=== PATIENT | male | born 1935 | race Caucasian/White ===

== ENCOUNTER → 2016-11-03 | Outpatient (CLI) | payer MEDICARE, BC ==
[~2016-11-03] MED LIST: ASPI-COR81 M1 PO; AVODART0.5 MG PO; B121000 MCG/1 IM; BACTRIM 400 MG-1 TAB PO; BUPROPION75 MG PO; CATAPRES T0.3 MG/24 TD; CELEXA20 MG PO; CELLCEPT500 MG PO; CHOLESTYRAMINE1 POW; CILOXAN 5 ML5 M1 OP; CILOXAN 5 ML5 ML OT; CLONIDINE HCL0.1 MG PO; CYANOCOBAL1000 MCG/1; CYMBALTA30 MG PO; DELTASONE5 MG PO; DURICEF500 MG PO; FERROUS SULFAT325 MG PO; HYDRALAZINE HYD50 MG PO; IMODIUM A-D2 M2 PO; LASIX20 MG PO; LEVOTHYROXIN0.025 MG PO; LEVOXYL50 MCG PO; MAGNESIUM OXID400 MG PO; MAGNESIUM400 M1 PO; MASON NATURAL2000 IU PO; MULTIPLE VITAMI1 CAP PO; NEORAL100 MG PO; PREDNISONE10 MG PO; ROCALTROL0.25 MC2 PO; ROCALTROL0.5 MC1 PO; SULFAMETHOXAZO100 GM MC; SULFAMETHOXAZO100 GM PO; SUNMARK MAGNES250 MG PO; VERAPAMIL240 MG PO; VERELAN SR 240240 MG PO; VITAMIN D34000 UNIT PO; XIFAXAN550 MG PO; [UNRECOGNIZED DRUG - OTHER] PO
== END | disposition home or self-care (01) ==
LOC: RAD 16:19
DX: M47.896 Other spondylosis, lumbar region (principal); M54.5 Low back pain

== ENCOUNTER → 2016-12-02 | Outpatient (CLI) | payer MEDICARE, BC | END | disposition home or self-care (01) | LOC: RAD 10:04 | DX: M16.0 Bilateral primary osteoarthritis of hip (principal) ==

== ENCOUNTER 2017-11-27 23:35 | Emergency (ER) | payer MEDICARE, BC ==
[~2017-11-27] VITALS: Ht 172.7 cm; Wt 88.5 kg
[2017-11-28 01:03] LABS: BASO # 0.1 10*3/uL (0.0-0.1); BASO % 0.8 % (0.0-1.0); EOS # 0.3 10*3/uL (0.0-0.4); EOS % 2.3 % (1.0-4.0); HEMATOCRIT 29.9 % (42.0-52.0); HEMOGLOBIN 8.8 g/dl (14.0-18.0); LYMPH # 0.6 10*3/uL (1.3-4.4); LYMPH % 5.7 % (27.0-41.0); MEAN CELL VOLUME 104.2 fl (80.0-94.0); MEAN CORPUSCULAR HGB 30.7 pg (27.0-31.0); MEAN CORPUSCULAR HGB CONC 29.4 g/dl (33.0-37.0); MEAN PLATELET VOLUME 10.2 fl (9.6-12.3); MONO # 1.1 10*3/uL (0.1-1.0); MONO % 9.6 % (3.0-9.0); NEUT # 9.1 10*3/uL (2.3-7.9); NEUT % 80.4 % (47.0-73.0); PLATELET COUNT AUTOMATED 275 10*3/uL (130-400); RED BLOOD COUNT 2.87 10*6/uL (4.50-5.90); RED CELL DISTRI WIDTH 18.4 % (0-14.5); WHITE BLOOD COUNT 11.3 10*3/uL (4.8-10.8)
[2017-11-28 01:22] LABS: ALBUMIN 2.6 gm/dl (3.1-4.5); CREATININE 4.84 mg/dL (0.70-1.30); POTASSIUM 4.8 mmol/L (3.5-5.1); TOTAL PROTEIN 6.8 gm/dL (6.4-8.2)
[2017-11-28 05:23] VITALS: BP 161/88
== END 2017-11-28 06:14 | disposition other institution (70) ==
LOC: ED 23:35
PROVIDERS: Emergency Medicine
DX: I87.2 Venous insufficiency (chronic) (peripheral) (principal); R60.0 Localized edema; Z94.0 Kidney transplant status; Z79.899 Other long term (current) drug therapy; Z79.82 Long term (current) use of aspirin; Z88.8 Allergy status to other drugs, medicaments and biological substances

== ENCOUNTER 2018-06-19 15:04 | Inpatient (IN) | payer MEDICARE, BC ==
[~2018-06-19] VITALS: Ht 177.8 cm; Wt 71.3 kg
--- NOTE | ~2018-06-19 | PR ---
[place], [place] PROGRESS NOTE NAME: SMILEY NAYLOR [facility] #: [id number] UNIT #: [id number] ROOM: 511 DOCTOR: GABE CASTELAN MD BIRTHDATE: [birth year] DOS: SUBJECTIVE: The patient states that he feels better. He is less uncomfortable this morning. Discussed with both the patient and his as well as his son who was in the room. OBJECTIVE: VITAL SIGNS: Blood pressure is 111/55, pulse of 80, respirations 18, temperature 97.4. LUNGS: Clear. HEART: Regular. ABDOMEN: Obese, soft, nontender this morning. EXTREMITIES: Without any edema. The patient was raised up in bed and he did not have any complaints of back pain this morning. LABORATORY DATA: White cell count is 11.9, hemoglobin 9.5. ASSESSMENT AND PLAN: 1. The patient who comes in with pain, he was not really able to explain where exactly his pain was. He complained of lower back pain, abdominal pain and just diffuse aches and pains initially on admission. I think diverticulitis is an incidental finding. He was placed on metronidazole and Zosyn for that. White cell count was indeed elevated at 14.2 with a lactic acid of 2.4. They have all come down, so we will continue the IV antibiotics. 2. Compression fracture of L1 with vertebroplasty, lot of wrist pain is from his recent fracture. He was placed on Toradol and seems to be working. We will continue it for right now. I will most likely switch to Motrin 800 and then discharge him back to [place] tomorrow. 3. End-stage renal failure, on dialysis. He is being continued right now. GABE CASTELAN MD CM:PNTRANS 9 3 GABE CASTELAN MD 06/21/18953 interface
--- NOTE | ~2018-06-19 | WRIGHTHP ---
[place], [place] PATIENT HISTORY AND PHYSICAL EXAM NAME: SMILEY NAYLOR [facility] #: [id number] UNIT #: [id number] ROOM: 511 DOCTOR: APRYL FLORES MD BIRTHDATE: [birth year] DOS: HISTORY OF PRESENT ILLNESS: The patient is an 83-year-old gentleman with a past medical history of: 1. Kidney failure. The patient remains on hemodialysis. 2. Advanced adult failure to thrive. 3. Compression fracture at L1 vertebra and vertebroplasty. 4. Benign essential hypertension. 5. Major depression, recurrent, mild. 6. Type 2 diabetes mellitus, diet controlled. 7. Generalized anxiety disorder. 8. Benign prostatic hypertrophy and urine retention. 9. Gastroesophageal reflux disease and esophagitis. The patient presented to the Emergency Department with complaints of abdominal pains and also severe lower back pains, where he had earlier vertebroplasty. No complaints of any chest pains. No increasing shortness of breath. No other GI or urinary symptoms. SYSTEMS REVIEW: CARDIOVASCULAR SYSTEM: No chest pains or palpitations. GASTROINTESTINAL: No nausea, vomiting, diarrhea or constipation. RESPIRATORY: No increasing shortness of breath or wheezing. FAMILY HISTORY: Noncontributory. SOCIAL HISTORY: . Denies smoking cigarettes, alcohol and drug abuse. HOME MEDICATIONS: Levothyroxine, magnesium, metoprolol, hydrocortisone, Zoloft, hydralazine, Flomax, aspirin, colchicine. Also, the patient takes Vicodin and clonazepam. PHYSICAL EXAMINATION: GENERAL: The patient does wake up, pleasantly confused, in no visible distress at the present time, but according to nursing staff, he gets significant amount of lower back pains. VITAL SIGNS: Blood pressure 133/73, heart rate 90 beats per minute, breathing 18 times per minute, temperature 99 degrees Fahrenheit. HEENT AND NECK: Extraocular movements are intact. Sclerae are anicteric. Oral mucosa is moist and clean. No obvious facial weakness. Neck is supple without any lymphadenopathy. No thyromegaly. No JVD. No carotid arterial bruits. LUNGS: Clear to auscultation. No wheezing. No rhonchi. CARDIOVASCULAR SYSTEM: Heart rate is regular in rate and rhythm. S1 and S2 normally audible. No significant murmur or any other abnormal cardiac sounds. ABDOMEN: Soft, nontender. No obvious organomegaly. Bowel sounds are present. No obvious herniation. EXTREMITIES: Without significant cyanosis or edema. Warm to touch. CENTRAL NERVOUS SYSTEM: Alert and oriented x 3. Cranial nerves II-XII are intact. Speech is normal. The patient is able to move all extremities. Normal muscle strength. Deep tendon reflexes are equal on both sides. Plantars were [place], [place] PATIENT HISTORY AND PHYSICAL EXAM [facility] [id number] UNIT #: [id number] ROOM: [facility] DOCTOR: APRYL FLORES MD BIRTHDATE: [birth year] downgoing. Mental confusion and generalized weakness. LABORATORY DATA: BUN and creatinine 68 and 8. Normal serum electrolytes. White cell count of 11,700, hemoglobin 10.2. CT of the abdomen and pelvis showing colitis and diverticulitis of the right colon. White cell count elevated to 14,000, improving now. IMPRESSION: 1. Acute diverticulitis involving the right colon, being treated with metronidazole and IV Zosyn. White cell count is improving. 2. Severe lower back pains with L1 compression fractures, status post vertebroplasty. Case was discussed with Dr. Hirsch and he has suggested the use of Toradol for pain control, because the patient already in kidney failure and needs pain relief. If the patient was given opioids, she gets very even more confused. Morphine did not work well for him, but he is on Vicodin and it is not controlling his pain very well. Morphine has not worked very well for the patient in the past. 3. Benign prostatic hypertrophy and urine retention, asymptomatic with Flomax. 4. Benign essential hypertension, treated and controlled. 5. Major depression, recurrent, mild, treated with Zoloft, which is being continued. 6. Hypothyroidism, treated with levothyroxine. 7. Generalized anxiety disorder, treated with clonazepam. The patient to be transferred to Dr. Graf. APRYL FLORES MD CM:HISPHYS:PATIENT HISTORY AND PHYSICAL EXAMINATION [phone] APRYL FLORES MD 06/20/181807 interface
--- NOTE | ~2018-06-19 | PR ---
[place], [place] PROGRESS NOTE NAME: SMILEY NAYLOR [facility] #: [id number] UNIT #: [id number] ROOM: 511 DOCTOR: GABE CASTELAN MD BIRTHDATE: [birth year] DOS: SUBJECTIVE: The patient is doing fine without any complaints. OBJECTIVE: VITAL SIGNS: Graphic trend shows blood pressure of 118/52, pulse of 73, respirations 16, temperature 97.9. LUNGS: Clear. HEART: Regular. ABDOMEN: Soft. EXTREMITIES: Without any edema. ASSESSMENT AND PLAN: 1. End-stage renal failure, on dialysis. 2. Acute diverticulitis, improved. He does not have any complaints, eating well. We will switch to p.o. antibiotics. 3. Acute lumbago following a vertebral fracture, status post vertebroplasty. Pain is under control. He is going back to [facility] for physical therapy. 4. Hemodialysis catheter line malfunction. The patient to be seen by Interventional Radiology today and after that he will be discharged to [place]. GABE CASTELAN MD CM:PNTRANS 3 GABE CASTELAN MD 06/23/18913 interface
--- NOTE | ~2018-06-19 | DS ---
[place], [place] DISCHARGE SUMMARY NAME: SMILEY NAYLOR [facility] #: [id number] UNIT #: [id number] ROOM: 511 DOCTOR: GABE CASTELAN MD BIRTHDATE: [birth year] DOS: 06/23/2018 The patient was admitted on 06/19/2018 and discharged on 06/23/2018. DIAGNOSES: 1. End-stage renal failure, on dialysis. 2. Acute diverticulitis. 3. Compression fracture of L1, status post vertebroplasty. 4. Acute lumbago. 5. Adult failure to thrive. 6. Benign hypertension. 7. Major depression, mild, recurrent. 8. Generalized anxiety disorder. 9. Type 2 diabetes mellitus, diet controlled. 10. Benign prostatic hypertrophy. 11. Gastroesophageal reflux disease with esophagitis. 12. Hypothyroidism. DISCHARGE MEDICATIONS: Will be Celebrex 100 mg twice a day for 10 days, Cipro 500 mg daily for 5 days, aspirin 81 mg daily, levothyroxine 100 mcg daily, mag-oxide 400 Wednesday, Wednesday, Wednesday, vitamin D 4000 units daily, Klonopin 0.25 daily p.r.n., colchicine 0.6 daily p.r.n., hydralazine 25 b.i.d., hydrocortisone 10 at bedtime, metoprolol 25 b.i.d., omeprazole 20 daily, sertraline 150 daily, Flomax 0.4 daily, zinc 50 mg daily, Tylenol 650 q. 6 p.r.n., Rickreall 5 q 6 p.r.n. for pain, Tylenol 650 q.i.d. straight for pain for 7 days. HOSPITAL COURSE: This patient is very well known to us who is 83 years old with complaints of acute back pain, when he came into the Emergency Room, he was so uncomfortable. He was not sure where the pain was, he complained of diffuse aches and pains. A CT of the abdomen and pelvis was also done as a workup and it showed some mild diverticulitis. This was just an incidental finding. After admission he was placed on IV antibiotics Toradol, and with that he has finally achieved some pain control. He did sit up with physical therapy and did participate in some bedside exercises and his mental status is now back to his original state. The patient is having some problems with hemodialysis catheter. Interventional Radiology to look into it this morning and after that the patient to go back to [facility] for continued physical therapy. [place], [place] DISCHARGE SUMMARY NAME: SMILEY NAYLOR UNIT #: [id number] ROOM: 511 DOCTOR: GABE CASTELAN MD BIRTHDATE: [birth year] GABE CASTELAN MD CM:DISCHARG 0 8 GABE CASTELAN MD 06/23/1856 interface
--- NOTE | ~2018-06-19 | PR ---
[place], [place] PROGRESS NOTE NAME: SMILEY NAYLOR [facility] #: [id number] UNIT #: [id number] ROOM: 511 DOCTOR: GABE CASTELAN MD BIRTHDATE: [birth year] DOS: SUBJECTIVE: The patient is a little bit more awake and alert and oriented, does not have any complaints of pain this morning. OBJECTIVE: VITAL SIGNS: Graphic trend shows pressure of 117/98, pulse of 85, respirations 20, temperature 97.5. LUNGS: Clear. HEART: Regular. ABDOMEN: Obese, soft, nontender. EXTREMITIES: Without any edema. LABORATORY DATA: White cell count is down to 11.9, hemoglobin 9.5, hematocrit 31.6, platelets 244. MRSA of the nares was negative. ASSESSMENT AND PLAN: 1. End-stage renal failure, on dialysis. 2. Recent vertebroplasty for compression fracture. The patient is getting pain control achieved with Toradol. PT/OT has been consulted. 3. Benign hypertension, fairly controlled. Plan is to discharge him back to [facility] tomorrow. GABE CASTELAN MD CM:PNTRANS [phone] GABE CASTELAN MD 06/22/18908 interface
[2018-06-19 00:30] VITALS: BP 139/65
[2018-06-19 15:04] VITALS: BP 112/56
[~2018-06-19 15:04] MED LIST changes: +'KLONOPIN0.5 MG PO; +APRESOLINE25 MG PO; +COLCRYS0.6 M1 PO; +FLOMAX0.4 MG PO; +HYDROCORTISONE10 MG PO; +METOPROLOL SUCC50 M1 PO; +OMEPRAZOLE20 M2 PO; +TORSEMIDE100 MG PO; +TYLENOL325 M2 PO; +ZINC50 M3 PO; +ZOLOFT100 MG PO
[2018-06-19 16:20] VITALS: BP 121/63
[2018-06-19 17:36] VITALS: BP 146/73
[2018-06-19] MEDS ORDERED: NORCO 5-325 TA1 EACH PO (18:30)
[2018-06-19 21:11] LABS: BASO # 0.1 10*3/uL (0.0-0.1); BASO % 0.4 % (0.0-1.0); EOS # 0.5 10*3/uL (0.0-0.4); EOS % 3.5 % (1.0-4.0); HEMATOCRIT 33.3 % (42.0-52.0); LYMPH # 0.7 10*3/uL (1.3-4.4); LYMPH % 4.8 % (27.0-41.0); MEAN CELL VOLUME 97.4 fl (80.0-94.0); MEAN CORPUSCULAR HGB 29.2 pg (27.0-31.0); MEAN PLATELET VOLUME 9.7 fl (9.6-12.3); MONO # 0.9 10*3/uL (0.1-1.0); MONO % 6.4 % (3.0-9.0); NEUT % 84.3 % (47.0-73.0); PLATELET COUNT AUTOMATED 234 10*3/uL (130-400); RED BLOOD COUNT 3.42 10*6/uL (4.50-5.90); RED CELL DISTRI WIDTH 15.6 % (0-14.5); WHITE BLOOD COUNT 14.2 10*3/uL (4.8-10.8)
[2018-06-19 21:29] LABS: ALBUMIN 2.7 gm/dl (3.1-4.5); ALKALINE PHOSPHATASE 174 U/L (45-117); BUN 55 mg/dl (7-24); CHLORIDE 100 mmol/L (98-107); CREATININE 7.73 mg/dL (0.70-1.30); LIPASE 133 U/L (73-393); POTASSIUM 4.7 mmol/L (3.5-5.1); SGOT/AST 23 IU/L (3-35); SGPT/ALT 19 U/L (12-78); SODIUM 136 mmol/L (136-145); TOTAL PROTEIN 7.2 gm/dL (6.4-8.2)
[2018-06-19 21:30] LABS: TROPONIN I < 0.015 ng/ml (<0.045)
[2018-06-19 21:40] VITALS: BP 134/68
[2018-06-19 21:59] LABS: BILIRUBIN NEGATIVE (NEGATIVE); BLOOD NEGATIVE (NEGATIVE); CLARITY CLEAR (CLEAR); COLOR YELLOW (YELLOW); GLUCOSE NEGATIVE (NEGATIVE); KETONE NEGATIVE (NEGATIVE); LEUKO ESTERASE NEGATIVE (NEGATIVE); NITRITE NEGATIVE (NEGATIVE); SPECIFIC GRAVITY 1.015 (1.005-1.030); UROBILINOGEN 0.2 E.U./dl (0.2-1.0)
[2018-06-19 22:05] LABS: HYALINE CAST 0-2; RBC 0-2 rbc/hpf (0-2)
[2018-06-19 23:10] VITALS: BP 130/70
[2018-06-20 00:17] VITALS: BP 135/70
[2018-06-20] MEDS ORDERED: NORCO 5-325 TA1 EACH PO (01:31)
[2018-06-20 08:00] VITALS: BP 133/73
[2018-06-20 10:56] LABS: BASO # 0.1 10*3/uL (0.0-0.1); BASO % 0.5 % (0.0-1.0); EOS # 0.4 10*3/uL (0.0-0.4); EOS % 3.4 % (1.0-4.0); HEMATOCRIT 32.7 % (42.0-52.0); HEMOGLOBIN 10.2 g/dl (14.0-18.0); LYMPH # 0.5 10*3/uL (1.3-4.4); LYMPH % 4.5 % (27.0-41.0); MEAN CELL VOLUME 97.3 fl (80.0-94.0); MEAN CORPUSCULAR HGB 30.4 pg (27.0-31.0); MEAN CORPUSCULAR HGB CONC 31.2 g/dl (33.0-37.0); MEAN PLATELET VOLUME 9.7 fl (9.6-12.3); MONO # 0.8 10*3/uL (0.1-1.0); MONO % 6.7 % (3.0-9.0); NEUT # 9.8 10*3/uL (2.3-7.9); PLATELET COUNT AUTOMATED 238 10*3/uL (130-400); RED BLOOD COUNT 3.36 10*6/uL (4.50-5.90); RED CELL DISTRI WIDTH 15.6 % (0-14.5); WHITE BLOOD COUNT 11.7 10*3/uL (4.8-10.8)
[2018-06-20 11:12] LABS: ALBUMIN 2.7 gm/dl (3.1-4.5); CREATININE 8.25 mg/dL (0.70-1.30); PHOSPHOROUS 6.1 mg/dL (2.5-4.9); POTASSIUM 4.5 mmol/L (3.5-5.1)
[2018-06-20 12:00] VITALS: BP 98/52
[2018-06-20 13:30] VITALS: BP 104/48
[2018-06-20 16:00] VITALS: BP 146/72
[2018-06-20 20:00] VITALS: BP 120/64
[2018-06-21] VITALS: BP 100/57
[2018-06-21 06:58] LABS: BASO # 0.1 10*3/uL (0.0-0.1); BASO % 0.7 % (0.0-1.0); EOS # 0.4 10*3/uL (0.0-0.4); EOS % 3.2 % (1.0-4.0); HEMATOCRIT 31.6 % (42.0-52.0); HEMOGLOBIN 9.5 g/dl (14.0-18.0); LYMPH # 0.5 10*3/uL (1.3-4.4); LYMPH % 4.4 % (27.0-41.0); MEAN CELL VOLUME 97.5 fl (80.0-94.0); MEAN CORPUSCULAR HGB 29.3 pg (27.0-31.0); MEAN CORPUSCULAR HGB CONC 30.1 g/dl (33.0-37.0); MEAN PLATELET VOLUME 9.9 fl (9.6-12.3); MONO % 8.6 % (3.0-9.0); NEUT # 9.8 10*3/uL (2.3-7.9); NEUT % 82.3 % (47.0-73.0); PLATELET COUNT AUTOMATED 244 10*3/uL (130-400); RED BLOOD COUNT 3.24 10*6/uL (4.50-5.90); RED CELL DISTRI WIDTH 15.4 % (0-14.5); WHITE BLOOD COUNT 11.9 10*3/uL (4.8-10.8)
[2018-06-21 08:00] VITALS: BP 111/55
[2018-06-21 12:00] VITALS: BP 104/45
[2018-06-21 16:00] VITALS: BP 155/66
[2018-06-21 20:00] VITALS: BP 106/46
[2018-06-22] VITALS: BP 143/59
[2018-06-22 08:00] VITALS: BP 117/98
[2018-06-22 16:00] VITALS: BP 161/81
[2018-06-22 20:00] VITALS: BP 146/64
[2018-06-23] VITALS (7 sets, daily range): BP systolic 118–155; BP diastolic 7–81
[2018-06-23] MEDS ORDERED: CIPRO500 MG PO ×2 (08:44→09:00)
[2018-06-23] MEDS ORDERED: CELEBREX100 MG PO (08:44)
[2018-06-23 11:02] LABS: CREATININE 7.17 mg/dL (0.70-1.30); POTASSIUM 4.2 mmol/L (3.5-5.1)
== END 2018-06-23 18:13 | disposition other institution (70) | DRG 391 ==
LOC: ED 15:04 → EDHOLD 23:30 → 5E 23:30
PROVIDERS: Internal Medicine; Internal Medicine Nephrology; Physician Assistant
PROC: 5A1D70Z Performance of Urinary Filtration, Intermittent, Less than 6 Hours Per Day (ICD-10-PCS; principal; 2018-06-21)
PROC: 3E03317 Introduction of Other Thrombolytic into Peripheral Vein, Percutaneous Approach (ICD-10-PCS; 2018-06-22)
DX: K57.32 Diverticulitis of large intestine without perforation or abscess without bleeding (principal); N18.6 End stage renal disease; E27.40 Unspecified adrenocortical insufficiency; I12.0 Hypertensive chronic kidney disease with stage 5 chronic kidney disease or end stage renal disease; Z94.0 Kidney transplant status; F33.0 Major depressive disorder, recurrent, mild; T82.49XA Other complication of vascular dialysis catheter, initial encounter; M54.5 Low back pain; N40.1 Benign prostatic hyperplasia with lower urinary tract symptoms; Y83.8 Other surgical procedures as the cause of abnormal reaction of the patient, or of later complication, without mention of misadventure at the time of the procedure; Y92.89 Other specified places as the place of occurrence of the external cause; R33.8 Other retention of urine; R62.7 Adult failure to thrive; K21.0 Gastro-esophageal reflux disease with esophagitis; E11.22 Type 2 diabetes mellitus with diabetic chronic kidney disease; E03.9 Hypothyroidism, unspecified; Z66 Do not resuscitate; Z51.5 Encounter for palliative care; F41.1 Generalized anxiety disorder; G90.8 Other disorders of autonomic nervous system; N25.0 Renal osteodystrophy; D64.9 Anemia, unspecified; Z79.52 Long term (current) use of systemic steroids; Z88.8 Allergy status to other drugs, medicaments and biological substances; Z91.81 History of falling; Z82.49 Family history of ischemic heart disease and other diseases of the circulatory system; Z83.3 Family history of diabetes mellitus; Z80.9 Family history of malignant neoplasm, unspecified; Z79.82 Long term (current) use of aspirin; Z79.899 Other long term (current) drug therapy

== ENCOUNTER 2018-08-23 12:15 | Inpatient (IN) | payer MEDICARE, BC ==
[~2018-08-23] VITALS: Ht 175.3 cm; Wt 67.7 kg
--- NOTE | ~2018-08-23 | EKG ---
[place], [place] ELECTROCARDIOGRAM REPORT NAME: SMILEY NAYLOR JR UNIT #: [id number] ROOM: 408 DOCTOR: BENJA DRAFT REPORT BIRTHDATE: [birth year] [facility] Test Date: 2018-08-23 Test Time: 12:56:44 Pat Name: SMILEY NAYLOR Department: Room: 408 Gender: M Pension Manager: : [id number] Requested By: ARPAN MARX Order Number: [id number] Reading MD: Nola Edwards MD Measurements Intervals [place] Rate: 107 P: -14 SC: 194 QRS: -34 QRSD: 93 T: 48 QT: 335 QTc: 447 Interpretive Statements Sinus tachycardia Abnormal R-wave progression, late transition Inferior infarct, old Compared to ECG 06/12/2018 11:29:39 Myocardial infarct finding now present Ectopic atrial rhythm no longer present First degree AV block no longer present Left-axis deviation no longer present T-wave abnormality no longer present Possible ischemia no longer present Electronically Signed On 08-26-2018 9:38:10 PST by Nola Edwards MD CM:EKGRPT:ELECTROCARDIOGRAM REPORT [id number] ARPAN SHERWOOD DRAFT REPORT ARPAN MARX DO
--- NOTE | ~2018-08-23 | PR ---
[place], [place] PROGRESS NOTE NAME: [facility] JR [id number] UNIT #: [id number] ROOM: 408 DOCTOR: GABE CASTELAN MD BIRTHDATE: [birth year] DOS: SUBJECTIVE: The patient did have a fever yesterday evening spiked a temperature to 102, but since then he has leveled off and normalized. He is presently confused this morning, did recognize me. OBJECTIVE: VITAL SIGNS: Blood pressure is 156/72, pulse of 80, respirations 16, temperature 97.8. LUNGS: Diminished breath sounds. No wheezes, rales or rhonchi heard. HEART: Regular. ABDOMEN: Obese, soft, nontender. EXTREMITIES: Without any edema. LABORATORY DATA: Shows normal white cell count of 8.8, hemoglobin 8.6, hematocrit 29.3, platelets 193. BMP: Glucose 113, BUN 25, creatinine 4.3, sodium 135, potassium 3.7, chloride 98, bicarbonate 28, magnesium 2.2, albumin 2.3, SGOT is 45, SGPT is 37, alkaline phosphatase 162. ASSESSMENT AND PLAN: 1. Bilateral pneumonia, on IV antibiotics. 2. Adult failure to thrive, awaiting placement. If the patient remains afebrile, plan is to discharge him to [facility] tomorrow. Blood culture so far shows no bacterial growth. 3. End-stage renal failure, on dialysis. 4. 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 Continue home medications. 4. Urinary tract infection with Proteus mirabilis, on cephalosporins. GABE CASTELAN MD NATHANIEL ROUSSEAU MD CM:PNTRANS 1 [phone] GABE CASTELAN MD 08/27/18 1034 interface
--- NOTE | ~2018-08-23 | PR ---
[place], [place] PROGRESS NOTE NAME: SMILEY NAYLOR JR [facility] #: [id number] UNIT #: [id number] ROOM: 408 DOCTOR: GABE CASTELAN MD BIRTHDATE: [birth year] DOS: SUBJECTIVE: The patient was seen after the bronchoscopy, while he was getting dialyzed. He is pretty confused this afternoon, he did not recognize me, does not seem to be in any distress. He is comfortable at rest without any shortness of breath. PHYSICAL EXAMINATION: VITAL SIGNS: Blood pressure is 122/50, pulse of 88, respirations 16, temperature 97.3, T-max was yesterday evening at 4:00 was 100.6. LUNGS: Clear. HEART: Regular. ABDOMEN: Soft. EXTREMITIES: Without any edema. ASSESSMENT AND PLAN: 1. Bilateral pneumonia, on IV antibiotics, status post bronchoscopy, awaiting bronchoscopy cultures. 2. Diarrhea, which is C. diff negative. 3. Continued fever with negative blood cultures, no changes made in the antibiotics today. 4. Adult failure to thrive, hopefully can go to [facility] for therapy tomorrow. He is getting dialysis today, so we will not be able to send him today. His confusion is most likely from Versed that he received before bronchoscopy, should stabilize and be okay, back to normal baseline tomorrow. GABE CASTELAN MD CM:PNTRANS [phone] GABE CASTELAN MD 08/29/18 1508 interface
--- NOTE | ~2018-08-23 | PR ---
[place], [place] PROGRESS NOTE NAME: SMILEY NAYLOR JR [facility] #: [id number] UNIT #: [id number] ROOM: 408 DOCTOR: GABE CASTELAN MD BIRTHDATE: [birth year] DOS: SUBJECTIVE: The patient is about the same. He seems a little bit confused, but was able to reorient. OBJECTIVE: VITAL SIGNS: Blood pressure is 128/65, pulse of 86, respirations 18, temperature 98.1. LUNGS: Diminished breath sounds, clear. HEART: Regular. ABDOMEN: Obese, soft, nontender. EXTREMITIES: Without any edema. ASSESSMENT AND PLAN: 1. End-stage renal failure, on dialysis. 2. Bilateral pneumonia, status post bronchoscopy. Bronch cultures are negative. 3. Adult failure to thrive. 4. History of cerebrovascular accident with metabolic encephalopathy, which is multifactorial. The patient is going to [facility] today for continued physical therapy. GABE CASTELAN MD CM:PNTRANS 6 6 GABE CASTELAN MD 09/02/18206 interface
--- NOTE | ~2018-08-23 | PR ---
[place], [place] PROGRESS NOTE NAME: SMILEY NAYLOR JR [facility] #: [id number] UNIT #: [id number] ROOM: 408 DOCTOR: DELGADO VELOZ MD,KATIANA BIRTHDATE: [birth year] DOS: 08/30/2018 SUBJECTIVE: The patient noted comfortable at this time without any acute distress, was noted to be with the decreased mentation earlier seen by Dr. Quin Graf. The patient appeared to be more awake. This morning arterial blood gas was ordered for assessment of any hypercapnia resulting change in mental status. The patient was noted with no hypercapnia. Bronchoscopy was completed yesterday without difficulty. Not been reported any hemodynamic instability otherwise. Continue antibiotics as well, has not been reported any symptoms of abdominal pain, nausea, vomiting, diarrhea. Low-grade fevers are noted 100.9 degrees Fahrenheit yesterday afternoon. After the patient remains afebrile. REVIEW OF SYSTEMS: The patient was completed to be normal. OBJECTIVE: VITAL SIGNS: The patient has a blood pressure of 144/73-120/73 respiratory rate 16, 20, heart rate of 127-96, temperature of 100.9 Fahrenheit, normal temperature. Pulse oxygen saturation recorded as 98% on 2 liters cannula. HEENT: Head was atraumatic. Eyes nonicterus. NECK: Supple. CARDIOVASCULAR SYSTEM: S1, S2 audible. LUNGS: Noted without any wheezing. Crackles noted scattered bilaterally. ABDOMEN: Soft, nontender. Bowel sounds present. EXTREMITIES: Without acute edema. MUSCULOSKELETAL: Without any acute deformities. CENTRAL NERVOUS SYSTEM: At this time no gross focal deficit. SKIN: No lesions or rashes. MUSCULOSKELETAL: Without acute deformities. LABORATORY DATA: Renal function panel: BUN 23, creatinine 4.28, glucose 103. Remaining renal function panel normal. The BMP of CBC this morning, WBC count 9.9, hemoglobin 8, hematocrit 27.1, platelet 141,000, 66% segmented neutrophils. Gram stain of the bronchial washing from yesterday noted as many white blood cells, rare gram-positive cocci in pairs and clusters, rare budding yeast. The fungal culture for the patient were pending. No fungal elements was seen. Stool for C. diff toxin completed yesterday and was noted as negative. Arterial blood gas this morning, pH of 7.47, pCO2 of 35, pO2 of 71.6. IMPRESSION: 1. Bilateral pulmonary infiltration with acute interstitial pneumonitis area of consolidation. The BAL specimen that was done yesterday noted significant predominance of neutrophils consistent with acute inflammatory condition with consideration of acute pneumonia infection. 2. The patient with end-stage renal failure, hemodialysis as well. 3. Anemia of chronic disease. 4. The patient's change in mental status, but noted better this morning. There was no evidence of hypercarbia or other etiologies. 5. Low-grade fever, etiology still remains not clear for bronchial washing cultures. [place], [place] PROGRESS NOTE NAME: MARIA ISABELJUNIOR SMILEY Villarreal UNIT #: [id number] ROOM: [facility] DOCTOR: DELGADO VELOZ MD,KATIANA BIRTHDATE: [birth year] PLAN OF TREATMENT: Continue antibiotics, bronchodilators, monitor respiratory status. Continue hemodialysis per order from Nephrology services. Other therapy, plan of management. Changes in the antibiotic. The escalation will be done based on the progression of the illness. Possible charge of the corticosteroid patient if the cultures noted to be negative for any acute infection. KATIANA NATARAJAN MD CM:PNTRANS 53 KATIANA VELOZ MD 08/30/182054 interface
--- NOTE | ~2018-08-23 | PR ---
[place], [place] PROGRESS NOTE NAME: SMILEY NAYLOR JR [facility] #: [id number] UNIT #: [id number] ROOM: 408 DOCTOR: GABE CASTELAN MD BIRTHDATE: [birth year] DOS: 08/28/2018 SUBJECTIVE: The patient is sitting up in a chair about, ate his breakfast. He does not appear to have any distress. OBJECTIVE: GENERAL: He is much more awake and alert and oriented, in no distress. VITAL SIGNS: Blood pressure is 116/58, pulse of 90, respirations 20, temperature 97.3, but the T-max 102.1. LUNGS: Diminished breath sounds. HEART: Regular. ABDOMEN: Obese. EXTREMITIES: Without any edema. LABORATORY DATA: Urine culture: Proteus mirabilis. It was repeated and we do not have the results yet. C-reactive protein is 26. ESR is 126. CT of the abdomen and pelvis was repeated, it shows slight improvement in the pneumonia, but still present this patchy opacities. Abdomen and pelvis did not show any pathology. ASSESSMENT AND PLAN: 1. End-stage renal failure, on dialysis. 2. Bilateral pneumonia, on IV antibiotics, was readjusted yesterday. He is on vancomycin and imipenem now. The continued fevers are concerning the possibility of a fungal infection is being raised. I did speak to Dr. Davalos, who has been consulted. Also, patient's was informed. Flu titer was negative. 3. Urinary tract infection with negative blood cultures, again on antibiotics. 4. Adult failure to thrive, awaiting placement to [place], but cannot go as long as he is continuing to be febrile. GABE CASTELAN MD CM:PNTRANS [id number] GABE CASTELAN MD 08/28/18 1317 interface
--- NOTE | ~2018-08-23 | CON ---
[place], [place] REPORT OF CONSULTATION NAME: SMILEY NAYLOR JR [facility] #: [id number] UNIT #: [id number] ROOM: 408 DOCTOR: DELGADO VELOZ MDKATIANA BIRTHDATE: [birth year] DOS: 08/28/2018 PULMONARY CONSULTATION EVALUATION AND MANAGEMENT CONSULTATION REQUESTED BY: Dr. Quin Graf. REASON FOR CONSULTATION: Assessment of worsening pulmonary infiltration with possibility of pneumonia. HISTORY OF PRESENT ILLNESS: This is an 83-year-old white male patient who has been noted with history of end-stage renal failure for the past several years and receiving hemodialysis. The patient has failed kidney transplant previously as well per spouse of this patient. The patient noted some confusional status, not able to give me history. Kidney transplant in 1997. He has been admitted to the hospital on the date of 08/23/2018. The patient has been reported with symptoms of increased weakness, fatigue with some cough and shortness of breath. The patient has missed a dialysis of routine dialysis prior to admission to the hospital as well. He does not have any symptoms of hemoptysis. The patient's cough has been noted mild to moderate without any sputum expectoration. She denies any symptoms of wheezing or chest pain. REVIEW OF SYSTEMS: GENERAL: Limited because of the patient's confusion status. However, the patient was reported symptoms of weakness and fatigue that has persisted. EYES: Denies burning, redness, or discharge. EARS, NOSE AND THROAT: Denies sore throat, hoarseness, otalgia, postnasal drip, epistaxis. CARDIOVASCULAR: Denied anginal pain, edema. Pain of the lower extremities reported. GASTROINTESTINAL: Dysphagia, nausea, vomiting, diarrhea, abdominal pain, hematemesis, melena or hematochezia. SKIN: Denies abnormal lesions or rashes. MUSCULOSKELETAL: There were no deformities or any joint pain. CENTRAL NERVOUS SYSTEM: There were no focal neurologic deficits reported. There was no tingling sensation of the extremities, known at present time as well. PAST MEDICAL HISTORY: The patient reported as: 1. End-stage renal failure, hemodialysis for the past few years. 2. Essential hypertension. 3. 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 4. Multi-infarct dementia. 5. Adult failure to thrive. 6. Anxiety disorder. 7. BPH. 8. Hypothyroidism. 9. Chronic hypotension. SOCIAL HISTORY: The patient is and lives at home. He has a 5 children. Denies history of alcohol use or illicit drugs. The patient was noted [place], [place] REPORT OF CONSULTATION NAME: SMILEY NAYLOR JR UNIT #: [id number] ROOM: [facility] DOCTOR: DELGADO VELOZ MDKATIANA BIRTHDATE: [birth year] nonsmoker lifetime. Worked in the [employer] for about 7 years. PAST SURGICAL HISTORY: Noted as a: 1. Failed kidney transplants in 1997. 2. Dialysis catheter insertion. 3. Surgery for the perforated colon as well. 4. Cystoscopy. FAMILY HISTORY: Reported as father at the age of 6060 years old, complication of lung cancer. Mother at the age of 8787 years old related to heart problems. MEDICATIONS: The current medication, which has been administered for the patient today was noted as use of Flomax, omeprazole, aspirin, levothyroxine, hydrocortisone 10 mg at bedtime tablet, meropenem and vancomycin. The meropenem was started today and the Rocephin was discontinued by Dr. Quin Graf. DRUG ALLERGIES: The patient reported allergy: 1. FELODIPINE. 2. DOXAZOSIN. 3. ____. 4. DILAUDID. 5. VALSARTAN. PHYSICAL EXAMINATION: GENERAL: This is an 83-year-old elderly male patient currently sitting on the chair this morning of assessment without an acute distress. Height of 5 feet 9 inches, weight of 160 pounds. BMI is 23. VITAL SIGNS: Temperature noted 102 degrees Fahrenheit patient last night and prior to that was also noted elevation of temperature 102 degree Fahrenheit noted first of this month. Low BP were noted on admission for this patient of 100.4 degree Fahrenheit. The respiratory rate ranging between 16-20, heart rate of 88-110, blood pressure 133/76-122/71. Pulse oxygen saturation on 2 liters nasal cannula 94% saturation. HEENT: Examination shows head was atraumatic. Eyes nonicterus. NECK: Supple. CARDIOVASCULAR: S1, S2 audible. LUNGS: Noted with crackles of the lung were noted bilaterally. There was no wheezing. ABDOMEN: Soft, nontender, bowel sounds present. EXTREMITIES: The patient was noted without acute edema, clubbing, cyanosis. MUSCULOSKELETAL: The patient without any gross deformities. CENTRAL NERVOUS SYSTEM: Cranial nerves 2-12 intact. LABORATORY DATA: CBC of 08/23/2018 admission, WBC count normal, hemoglobin 10.4, platelet count was noted as normal. A 3.3% eosinophils were noted on admission. Lactic acid 4.1 on admission and then later on, 1.7. PT and PTT noted on admission of 08/23 normal. CMP on 08/23, the patient's BUN 53, creatinine 8.33, glucose 104, sodium 135, potassium 5.3. Urine culture done on admission as moderate growth of Proteus mirabilis was also noted. The blood [place], [place] REPORT OF CONSULTATION NAME: DAYDAY SMILEY UNIT #: [id number] ROOM: [facility] DOCTOR: GREYSON CHERRY MDM BIRTHDATE: [birth year] culture, which were taken on the showed no bacterial growth. Blood culture ____ noted no bacterial growth. Influenza A and B, nasal washing antigen were negative. The CRP was elevated. ESR was noted thick and elevated 126. The radiology data reviewed for the patient. PACS images. The chest x-ray that was done on admission dialysis catheter noted in place in the right side of the chest. Area of consolidation, infiltration noted in the right mid lung in the right middle lobe as well. The CT scan of the abdomen, pelvis, and the chest was done for the patient on 08/24 without any acute abnormal pathology in the abdomen reported. CT scan of the chest was noted with evidence of multiple areas of interstitial infiltration in the lungs shows area of consolidation as well with a right middle lobe peribronchial consolidative area. There was no significant pleural effusions were also noted. Some of the infiltration noted with a nodular appearance as well. The CT scan of chest repeated again on 08/27 was noted progression of an acute infiltration; other findings, remains essentially unchanged. IMPRESSION: 1. The patient will be currently admitted to the hospital with increased respiratory symptoms. Current interstitial infiltration by copious interstitial infiltration noted in the lung with multilobar with patchy infiltration, consolidation mass-like lesion for the patient and others in the right chest as well. 2. History of end-stage renal failure, on hemodialysis. The differential of the current infiltration would be considered for the patient as a finding of diffuse alveolar lung damage for the patient with interstitial pneumonitis would be bacterial or viral in origin with other noninfectious etiology including connective disorder and others remain in consideration. 3. Failure to respond to the current antibiotics with intermittent fever as well suggesting possibility of some resistant infection cannot be excluded. 4. The patient with a high risk of MRSA infection because of the current dialysis as well. 5. The patient with a history of chronic hypotension, treated with the Cortef. 6. History of dementia is well known. 7. End-stage renal failure, regular. PLAN OF MANAGEMENT: 1. The patient will be continued on current antibiotics. He has been currently on coverage for gram-positive, gram-negative infection, which will be continued without changes. Monitor culture results. The bronchoscopy should be done with the patient including BAL specification to determine the infection noninfectious etiology. The patient will be also ordered some usual workup for the connective tissue disorders as well. The bronchodilators continue to help mobilize secretions. Other additional treatment changes will be ordered based on the progression of the illness. The risk and the benefits of the bronchoscopy has been addressed with the patient's spouse and she was willing to give the procedure. The assessment and management was also discussed with Dr. Quin Graf as well. 2. Respiratory virus panel will be ordered as well for the patient to exclude any viral etiology for this patient of the current pulmonary infiltration as [place], [place] REPORT OF CONSULTATION NAME: MARIA ISABELSMILEY PACHECO JR UNIT #: [id number] ROOM: [facility] DOCTOR: KATIANA CHERRY MD BIRTHDATE: [birth year] well. 3. Urine for legionella antigen will be ordered as well. Coverage for the legionella antigen will be provided until it is excluded for patient appropriately. 4. Other supportive therapy, plan of management, care plan of treatment. Usual treatment and other therapies. Continue hemodialysis per order Nephrology services as well. Treatment changes will be ordered based on the progression of the illness. 5. The patient was ordered Zithromax for the coverage of potential atypical infection as well. Assessment management discussed with Dr. Quin Graf and the patient as well. Thanks for allowing me to participate in the care of this patient. KATIANA NATARAJAN MD CM:CONSTR:REPORT OF CONSULTATION 1515 08/29/18 0753 interface
--- NOTE | ~2018-08-23 | PR ---
[place], [place] PROGRESS NOTE NAME: SMILEY NAYLOR JR UNIT #: [id number] ROOM: 408 DOCTOR: DELGADO VELOZ MD,KATIANA BIRTHDATE: [birth year] DOS: 08/29/2018 PULMONARY PROGRESS NOTE SUBJECTIVE: The patient was still noted without any change in respiratory status with mild cough without sputum expectoration. Denies symptoms of chest pain or hemoptysis. Denies symptoms of chills. The patient has been noted with elevation in temperature again as 100.6 degrees Fahrenheit. He has not been reported for any symptoms of headache or diplopia. Denies symptoms of nausea, vomiting, diarrhea, or abdominal pain. The patient is n.p.o. past midnight for bronchoscopy which is planned to be done today. OBJECTIVE: VITAL SIGNS: For the patient which has been recorded showed a T-max of 100.6 Fahrenheit, respiratory rate of 18-16, heart rate of 87-110, blood pressure 115/58-137/80. Pulse oxygen saturation recorded on 3 liters nasal cannula 96% saturation. HEENT: Examination shows head was atraumatic. Eyes nonicterus. NECK: Supple. CARDIOVASCULAR: S1, S2 audible. LUNGS: Scattered crackles of the lung. No wheezing. ABDOMEN: Soft. Mild to moderate obesity. Bowel sounds present. EXTREMITIES: Without edema. VISIBLE SKIN: No lesions or rashes. MUSCULOSKELETAL: Without any acute deformities. CENTRAL NERVOUS SYSTEM: Was noted intact grossly. LABORATORY DATA: The vancomycin trough level 13.0, which is therapeutic. The urine culture were noted as no bacterial growths. No other labs for the patient available at this time. IMPRESSION: 1. The patient ongoing fevers, bilateral pulmonary infiltration with acute interstitial pneumonitis as area of consolidation as well. There was no evidence of mass lesion for this patient grossly, but some of the infiltrate appeared to be nodular. 2. End-stage renal failure, on hemodialysis. PLAN OF MANAGEMENT: Proceed for fiberoptic bronchoscopy as planned. BAL specimen to be also obtaining beside the bronchial wash, right middle lobe. No changes in antibiotic. Monitor temperature curve. Other supportive therapy, plan of management care as well. Usual treatment, other therapies as reported. [place], [place] PROGRESS NOTE NAME: SMILEY NAYLOR JR UNIT #: [id number] ROOM: 408 DOCTOR: KATIANA CHERRY MD BIRTHDATE: [birth year] KATIANA NATARAJAN MD CM:PNTRANS [phone] KATIANA VELOZ MD 08/30/18 0005 interface
--- NOTE | ~2018-08-23 | PR ---
[place], [place] PROGRESS NOTE NAME: SMILEY NAYLOR JR [facility] #: [id number] UNIT #: [id number] ROOM: 408 DOCTOR: GABE CASTELAN MD BIRTHDATE: [birth year] DOS: SUBJECTIVE: The patient is doing poorly this evening. He did spike a temperature earlier while in dialysis and was given Tylenol, temperature did come down. He is mostly incoherent this morning, does try to reorient when called. OBJECTIVE: VITAL SIGNS: Graphic trend shows a pressure of 170/72, pulse of 88, respirations 20, temperature 98.0, and T-max of 101.2. LUNGS: Diminished breath sounds, scattered rhonchi. HEART: Regular. ABDOMEN: Obese, distended. Bowel sounds present. EXTREMITIES: Without any edema. LABORATORY DATA: Urine showed Proteus mirabilis, which is sensitive to Rocephin. ASSESSMENT AND PLAN: 1. The patient who presents with fever and change in mental status, possibly from urinary tract infection for which he is on continuous IV antibiotics. 2. Continued fever. MRSA coverage was added with vancomycin. Today blood cultures are pending. 3. End-stage renal failure on dialysis. 4. History of a cerebrovascular accident with metabolic encephalopathy as well as possibility of multi-infarct dementia already on medications. 5. Hypertension, fairly under control. We will closely monitor it. GABE CASTELAN MD CM:PNTRANS 1416 [id number] GABE CASTELAN MD 08/25/18 0038 interface
--- NOTE | ~2018-08-23 | PR ---
[place], [place] PROGRESS NOTE NAME: SMILEY NAYLOR JR LOCATED [facility]IN [facility] #: [id number] UNIT #: [id number] ROOM: 408 DOCTOR: GABE CASTELAN MD BIRTHDATE: [birth year] DOS: 08/26/2018 SUBJECTIVE: The patient is doing much better. Complains of leg pains. OBJECTIVE EXAMINATION: GENERAL: He is awake and alert and oriented. VITAL SIGNS: Blood pressure is 135/70, pulse of 106, respirations 18, temperature 98.1. T-max of 100.4. LUNGS: Diminished breath sounds, clear. HEART: Regular. ABDOMEN: Soft. EXTREMITIES: Without any edema. ASSESSMENT AND PLAN: 1. Bilateral pneumonia, on IV antibiotics. 2. End-stage renal failure, on dialysis. 3. Metabolic encephalopathy, possibly multifactorial. He seems to be improving slightly. Plan is to discharge him to [facility] when bed is available for continued PT, OT. GABE CASTELAN MD CM:PNTRANS [id number] GABE CASTELAN MD 08/26/18 1058 interface
--- NOTE | ~2018-08-23 | PR ---
[place], [place] PROGRESS NOTE NAME: SMILEY NAYLOR JR [facility] #: [id number] UNIT #: [id number] ROOM: 408 DOCTOR: DELGADO VELOZ MD,KATIANA BIRTHDATE: [birth year] DOS: 08/31/2018 SUBJECTIVE: The patient has been noted much more comfortable at this time, fully awake and alert. Coughing has been subsiding. There were no symptoms of fever or chills. There were no symptoms of hemoptysis. He has been currently receiving hemodialysis. OBJECTIVE: VITAL SIGNS: Normal temperature, respiratory rate of 18, heart rate of 64, blood pressure 142/82. Pulse oxygen saturation recorded 2 liters nasal cannula 96% saturation. HEENT: Examination shows head was atraumatic. Eyes: No icterus. NECK: Supple. CARDIOVASCULAR: S1, S2 is audible. LUNGS: The patient was noted without any wheeze or crackles at the present time. ABDOMEN: Soft, nontender. Bowel sounds present. EXTREMITIES: No acute edema. LABORATORY DATA: Culture of the bronchial washing noted as normal césar. IMPRESSION: The patient with a stable respiratory status was noted at the present time with bilateral pulmonary infiltration, acute interstitial pneumonitis as well. Multifactorial etiology would be considered. Based on the culture results, adjustment of antibiotics will be done. PLAN OF TREATMENT: Discontinue Zithromax and vancomycin. Continue meropenem for another 4 days. However, this will be decided final after obtaining a chest x-ray that was ordered to be done. After completion of dialysis, we will review chest x-ray. Potential discharge to shelter tomorrow depends on the chest x-ray assessment and final determination of the antibiotic duration use. KATIANA NATARAJAN MD CM:PNTRANS [id number] KATIANA VELOZ MD 08/31/18 1521 interface
--- NOTE | ~2018-08-23 | WRIGHTHP ---
[place], [place] PATIENT HISTORY AND PHYSICAL EXAM NAME: SMILEY NAYLOR JR [facility] #: [id number] UNIT #: [id number] ROOM: 408 DOCTOR: GABE CASTELAN MD BIRTHDATE: [birth year] DOS: 08/23/2018 HISTORY OF PRESENT ILLNESS: The patient is an 83-year-old, very well known to me, was seen in the office last week. That time, he was doing fairly well and since then he has progressively worsened with increased weakness and he has not been able to get out of bed, but he did go for his dialysis last week on Wednesday. He has missed dialysis on Wednesday, which was this morning; he did go and did not complete the dialysis. He became too sick with increasing shortness of breath and cough and confusion, was sent out to the Emergency Room. He is not recognizing his . He seems to be uncomfortable, thrashing and turning in his bed. PAST MEDICAL HISTORY: Significant for: 1. End-stage renal failure, on dialysis. 2. Benign hypertension. 3. History of C. diff diarrhea. 4. Multiple hospitalizations for UTI. 5. History of CVA. 6. Multiinfarct dementia. 7. History of compression fracture with vertebroplasty. 8. Adult failure to thrive. 9. Generalized anxiety disorder. 10. Major depression, mild, recurrent. 11. Benign prostatic hypertrophy. 12. Hypothyroidism. 13. Chronic hypotension. MEDICATIONS: Medications that he is currently on are hydralazine 25 mg twice a day, metoprolol 25 mg twice a day, colchicine 0.6 p.r.n., cholestyramine 4 grams daily, vitamin D 4000 units daily, aspirin 81 daily, Celebrex 100 b.i.d., [place] 5 q. 6 p.r.n., hydrocortisone 10 mg at bedtime and 20 at night, levothyroxine 100 mcg daily, Megace 40 b.i.d., omeprazole 20 daily, tamsulosin 0.4 mg daily, sertraline 150 daily. SOCIAL HISTORY: Nonsmoker, does not use any alcohol. PHYSICAL EXAMINATION: GENERAL: He is awake and alert. VITAL SIGNS: Blood pressure is 129/72, pulse of 101, respirations 32, temperature 100.9. LUNGS: Diminished breath sounds, very poor air entry. HEART: Regular. ABDOMEN: Obese, soft. EXTREMITIES: Without any edema. LABORATORY AND IMAGING DATA: Chest x-ray shows a small right lower lobe infiltrate. Comprehensive, glucose 104, BUN 53, creatinine 8.33. Sodium 135, potassium 5.3. C-reactive protein 19,000. ProBNP 12,000, WBC count is 9.6, hemoglobin 10.4. Urine culture moderate gram-negative bacteria. [place], [place] PATIENT HISTORY AND PHYSICAL EXAM NAME: SMILEY NAYLOR JR [facility] #: [id number] UNIT #: [id number] ROOM: [facility] DOCTOR: GABE CASTELAN MD BIRTHDATE: [birth year] ASSESSMENT AND PLAN: 1. The patient who presents with confusion and urinary tract infection, now has an underlying new pneumonia causing metabolic encephalopathy. The patient is admitted. IV antibiotics have been started. We will readjust medications depending on the culture results. 2. Adult failure to thrive with overall prognosis remains poor and guarded. His code status is comfort care. Discussed with the patient's . May require placement once the infection is cleared. 3. Lactic acidosis, possibly from sepsis pattern and blood cultures are pending. 4. End-stage renal failure, on dialysis. We will readjust antihypertensives depending on his blood pressure. Consult Dr. Treviño for the dialysis. GABE CASTELAN MD CM:HISPHYS:PATIENT HISTORY AND PHYSICAL EXAMINATION 1442 [id number] GABE CASTELAN MD 08/23/18 1626 interface
--- NOTE | ~2018-08-23 | PR ---
[place], [place] PROGRESS NOTE NAME: SMILEY NAYLOR JR UNIT #: [id number] ROOM: 408 DOCTOR: KATIANA CHERRY MD BIRTHDATE: [birth year] DOS: 09/01/2018 SUBJECTIVE: The patient was noted comfortable at this time, sitting on the chair, participating in physical therapy. Denies symptoms of fever or chills or hemoptysis. OBJECTIVE: VITAL SIGNS: For the patient recorded normal temperature, respiratory rate 20, heart rate 83, blood pressure 134/88. The pulse oxygen saturation of the recorded as 94% on 2 liters cannula. HEENT: Head was atraumatic. Eyes nonicterus. NECK: Supple. CARDIOVASCULAR: S1, S2 audible. LUNGS: The patient was noted without any wheeze or crackles at the present time. ABDOMEN: Soft, nontender. EXTREMITIES: No acute change. LABORATORY DATA: The rheumatoid factor noted mildly elevated at 16.4. The SNEHA was noted mildly abnormal with dilution of 160 with homogenous pattern. Significant that was unknown. IMPRESSION: 1. Bilateral pulmonary infiltration with interstitial pneumonitis area of consolidation, status post bronchoscopy, negative cultures. 2. The patient with acute pneumonia, which has been treated empirically with antibiotics. 3. End-stage renal failure, hemodialysis as well. 4. Resolving acute respiratory failure. PLAN OF MANAGEMENT: Continuation of the bronchodilator with oxygen supplementation. Chest x-ray, PA lateral view was completed yesterday was reviewed and it shows resolving pulmonary infiltration. Small areas of atelectasis noted in the right mid lung as well as in the left lung with a small left lower lobe infiltration, dialysis catheter remains in place. The patient would be discharged home on oral antibiotic. Monitoring the patient was advised as an outpatient during shelter facility. Discussed with Dr. Quin Graf. Obtain a chest x-ray in the next couple of weeks to document the resolution of the current acute pulmonary infiltration and pneumonia. [place], [place] PROGRESS NOTE NAME: SMILEY NAYLOR JR UNIT #: [id number] ROOM: 408 DOCTOR: KATIANA CHERRY MD BIRTHDATE: [birth year] KATIANA NATARAJAN MD CM:PNTRANS [phone] KATIANA VELOZ MD 09/01/18 1256 interface
--- NOTE | ~2018-08-23 | PR ---
[place], [place] PROGRESS NOTE NAME: SMILEY NAYLOR JR [facility] #: [id number] UNIT #: [id number] ROOM: 408 DOCTOR: GABE CASTELAN MD BIRTHDATE: [birth year] DOS: 08/25/2018 SUBJECTIVE: The patient looks much better this morning. He is more awake and alert and oriented, not as confused as he is today. OBJECTIVE: VITAL SIGNS: Blood pressure is 140/79, pulse of 90, respirations 16, temperature 100.4. LUNGS: Diminished breath sounds. HEART: Regular. ABDOMEN: Obese, soft, nontender. EXTREMITIES: Without any edema. ASSESSMENT AND PLAN: 1. Bilateral pneumonia with continued fever and sepsis pattern. Sepsis has been ruled out with negative blood cultures. The patient is on Rocephin and vancomycin, which will be continued. White cell count has normalized. He was slowly trending down. 2. End-stage renal failure, on dialysis. The patient is being seen by Dr. Treviño. 3. Urinary tract infection with Proteus mirabilis 50,000 in the urine, already on Rocephin. 4. Adult failure to thrive, to consider placement to [facility]. GABE CASTELAN MD CM:PNTRANS 1423 1435 GABE CASTELAN MD 08/25/18 1436 interface
--- NOTE | ~2018-08-23 | DS ---
[place], [place] DISCHARGE SUMMARY NAME: SMILEY NAYLOR JR [facility] #: [id number] UNIT #: [id number] ROOM: 408 DOCTOR: GABE CASTELAN MD BIRTHDATE: [birth year] DOS: 09/01/2018 HOSPITAL COURSE: The patient is very well known to us. The patient has increasing weakness; he is not been able to get out of bed, and as per his , he is also having some shortness of breath, cough, and confusion. He was sent to the Emergency Room, and he was evaluated and thought to have pneumonia and was admitted. After admission, the patient was placed on IV antibiotics, breathing treatments, oxygen supplementation. 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 Urine culture grew Proteus mirabilis, for which he was covered. Chest CT scan showed bilateral pneumonia for which again IV antibiotics were ordered. The patient continued to spike fevers, every evening he would have a high grade fever of 100.9. Dr. Davalos was consulted. Further adjustments in medications were made. A bronchoscopy was performed. Bronch cultures are negative. The patient also underwent dialysis during the stay here, Dr. Treviño did see the patient in consultation. Social service has been consulted for placement to [place] for short-term rehabilitation, it is arranged and will plan to discharge him today, he is back to his baseline. He does have continued periods of confusion, which may not completely resolve. DISCHARGE MEDICATIONS: His medications will be oxygen 2 L per minute nasal cannula, DuoNebs q. 6 hours, Flomax 0.4 mg daily, Prilosec 20 daily, levothyroxine 100 mcg daily, aspirin 81 daily, metoprolol 25 mg b.i.d., hydrocortisone 10 mg at bedtime, levothyroxine 100 mcg daily, magnesium oxide 400 mg Wednesday, Wednesday, Wednesday; omeprazole 20 daily, rivastigmine 3 mg b.i.d., zinc 50 mg daily, and doxycycline 100 mg p.o. b.i.d. for 7 days. GABE CASTELAN MD CM:DISCHARG [id number] GABE CASTELAN MD 09/01/18 1047 interface
--- NOTE | ~2018-08-23 | PR ---
[place], [place] PROGRESS NOTE NAME: SMILEY NAYLOR JR [facility] #: [id number] UNIT #: [id number] ROOM: 408 DOCTOR: GABE CASTELAN MD BIRTHDATE: [birth year] DOS: SUBJECTIVE: He woke up production dispatcher, did not answer any questions appropriately, said good morning and went back to sleep, not sure whether he recognized me. OBJECTIVE: VITAL SIGNS: Blood pressure is 128/78, pulse of 90, respirations 16, temperature 98.6, T-max of 100.9. LUNGS: Diminished breath sounds. HEART: Regular. ABDOMEN: Obese, soft. EXTREMITIES: Without any edema. LABORATORY DATA: White cell count is 9.9, hemoglobin 8.0, hematocrit 27.1, platelets 241. Routine culture has normal césar so far. ASSESSMENT AND PLAN: 1. Bilateral pneumonia, on IV antibiotics. 2. Metabolic encephalopathy, multifactorial, most likely from the underlying infections. 3. End-stage renal failure, on dialysis. 4. Change in mental status today could be from the Versed that he received for his bronch and may just take a little bit longer for the medicine to get washed out of his system. 5. Adult failure to thrive. We are awaiting placement to [facility], but since he is still not completely back to his baseline, I will hold here for one more day. GABE CASTELAN MD CM:PNTRANS [id number] GABE CASTELAN MD 08/30/18 1050 interface
--- NOTE | ~2018-08-23 | PROC NOTE ---
[place], [place] PROCEDURE NOTE NAME: SMILEY NAYLOR JR [facility] #: [id number] UNIT #: [id number] ROOM: 408 DOCTOR: DELGADO VELOZ MD,KATIANA BIRTHDATE: [birth year] DOS: 08/29/2018 PROCEDURE: Bronchoscopy. PREOPERATIVE DIAGNOSIS: Bilateral pulmonary infiltration with fever. POSTOPERATIVE DIAGNOSIS: Bilateral pulmonary infiltration with fever. PROCEDURE DESCRIPTION: Informed consent obtained. The patient's family members. The patient brought to the OR and placed in supine position. Conscious sedation administered by Anesthesia Department. After achieving proper sedation, airway introduced into the mouth. Bronchoscope advanced into the airway into laryngeal area. Epiglottis and vocal cords were seen. Vocal cords moving symmetrical movement. Bronchoscope advanced through the vocal to the tracheal lumen. Tracheal lumen was noted with scattered secretion, which was suctioned out with the help of normal saline wash. The bronchial washing was collected in the endobronchial tree bilaterally. BAL specimen was obtained from the right middle lobe as well. Procedure well tolerated by the patient without any difficulty. Postoperative findings were discussed with the patient's spouse with the patient in detail. KATIANA NATARAJAN MD CM:PROCNOTE:PROCEDURE NOTE [id number] KATIANA VELOZ MD
[2018-08-23 12:15] VITALS: BP 152/94
[~2018-08-23 12:15] MED LIST changes: +CELEBREX100 MG PO; +CHOLESTYRAMINE L4 GM PO; +CIPRO500 MG PO; +MEGACE40 MG PO; +NORCO 5-325 TA1 EACH PO
[2018-08-23 12:53] LABS: BASO # 0.1 10*3/uL (0.0-0.1); BASO % 0.7 % (0.0-1.0); EOS # 0.3 10*3/uL (0.0-0.4); EOS % 3.3 % (1.0-4.0); HEMATOCRIT 33.9 % (42.0-52.0); HEMOGLOBIN 10.4 g/dl (14.0-18.0); LYMPH # 0.7 10*3/uL (1.3-4.4); LYMPH % 7.1 % (27.0-41.0); MEAN CELL VOLUME 96.9 fl (80.0-94.0); MEAN CORPUSCULAR HGB 29.7 pg (27.0-31.0); MEAN CORPUSCULAR HGB CONC 30.7 g/dl (33.0-37.0); MONO # 0.8 10*3/uL (0.1-1.0); MONO % 8.6 % (3.0-9.0); NEUT # 7.6 10*3/uL (2.3-7.9); NEUT % 79.3 % (47.0-73.0); PLATELET COUNT AUTOMATED 213 10*3/uL (130-400); RED CELL DISTRI WIDTH 19.6 % (0-14.5); WHITE BLOOD COUNT 9.6 10*3/uL (4.8-10.8)
[2018-08-23 13:01] LABS: ACT PARTIAL THROMBO TIME 36.8 SECONDS (20.8-31.5)
[2018-08-23 13:07] LABS: ALBUMIN 3.1 gm/dl (3.1-4.5); CREATININE 8.33 mg/dL (0.70-1.30); POTASSIUM 5.3 mmol/L (3.5-5.1); TOTAL PROTEIN 8.2 gm/dL (6.4-8.2); TROPONIN I 0.024 ng/ml (<0.045)
[2018-08-23 14:10] VITALS: BP 129/72
[2018-08-23 15:00] VITALS: BP 153/79
[2018-08-23] MEDS ORDERED: MIRTAZAPINE15 M1 PO (15:24)
[2018-08-23] MEDS ORDERED: RIVASTIGMINE TAR3 M1 PO (15:25)
[2018-08-23 16:00] VITALS: BP 153/79
[2018-08-23 20:00] VITALS: BP 153/83
[2018-08-24] VITALS: BP 170/88
[2018-08-24 08:00] VITALS: BP 170/72
[2018-08-24 16:00] VITALS: BP 132/76
[2018-08-24 20:00] VITALS: BP 124/62
[2018-08-25] VITALS: BP 134/67
[2018-08-25 07:32] LABS: BASO # 0.1 10*3/uL (0.0-0.1); BASO % 0.9 % (0.0-1.0); EOS # 0.2 10*3/uL (0.0-0.4); EOS % 2.1 % (1.0-4.0); HEMATOCRIT 29.2 % (42.0-52.0); HEMOGLOBIN 8.8 g/dl (14.0-18.0); LYMPH # 0.4 10*3/uL (1.3-4.4); LYMPH % 5.5 % (27.0-41.0); MEAN CELL VOLUME 96.7 fl (80.0-94.0); MEAN CORPUSCULAR HGB 29.1 pg (27.0-31.0); MEAN CORPUSCULAR HGB CONC 30.1 g/dl (33.0-37.0); MEAN PLATELET VOLUME 10.1 fl (9.6-12.3); MONO # 0.7 10*3/uL (0.1-1.0); MONO % 8.3 % (3.0-9.0); NEUT # 6.6 10*3/uL (2.3-7.9); NEUT % 82.1 % (47.0-73.0); PLATELET COUNT AUTOMATED 168 10*3/uL (130-400); RED BLOOD COUNT 3.02 10*6/uL (4.50-5.90); RED CELL DISTRI WIDTH 19.3 % (0-14.5)
[2018-08-25 07:54] LABS: ALBUMIN 2.2 gm/dl (3.1-4.5); CREATININE 5.6 mg/dL (0.70-1.30); PHOSPHOROUS 6.6 mg/dL (2.5-4.9); POTASSIUM 4.4 mmol/L (3.5-5.1); TOTAL PROTEIN 6.7 gm/dL (6.4-8.2)
[2018-08-25 08:00] VITALS: BP 148/88
[2018-08-25 12:00] VITALS: BP 140/79
[2018-08-25 16:00] VITALS: BP 96/54
[2018-08-25 20:00] VITALS: BP 128/70
[2018-08-26] VITALS: BP 135/71
[2018-08-26 06:39] LABS: BASO # 0.1 10*3/uL (0.0-0.1); BASO % 0.7 % (0.0-1.0); EOS # 0.2 10*3/uL (0.0-0.4); EOS % 2.6 % (1.0-4.0); HEMATOCRIT 27.5 % (42.0-52.0); HEMOGLOBIN 8.7 g/dl (14.0-18.0); LYMPH # 0.6 10*3/uL (1.3-4.4); LYMPH % 7.2 % (27.0-41.0); MEAN CELL VOLUME 94.8 fl (80.0-94.0); MEAN CORPUSCULAR HGB CONC 31.6 g/dl (33.0-37.0); MEAN PLATELET VOLUME 10.7 fl (9.6-12.3); MONO # 0.7 10*3/uL (0.1-1.0); MONO % 7.4 % (3.0-9.0); NEUT # 7.2 10*3/uL (2.3-7.9); NEUT % 80.9 % (47.0-73.0); PLATELET COUNT AUTOMATED 194 10*3/uL (130-400); RED CELL DISTRI WIDTH 19.3 % (0-14.5); WHITE BLOOD COUNT 8.8 10*3/uL (4.8-10.8)
[2018-08-26 06:51] LABS: ALBUMIN 2.3 gm/dl (3.1-4.5); CREATININE 7.19 mg/dL (0.70-1.30); PHOSPHOROUS 5.5 mg/dL (2.5-4.9); POTASSIUM 4.3 mmol/L (3.5-5.1); TOTAL PROTEIN 6.7 gm/dL (6.4-8.2)
[2018-08-26 12:00] VITALS: BP 119/64
[2018-08-26 16:00] VITALS: BP 135/78
[2018-08-26 20:00] VITALS: BP 100/48
[2018-08-26 20:17] VITALS: BP 90/54
[2018-08-27] VITALS: BP 132/72
[2018-08-27 06:26] LABS: BASO # 0.1 10*3/uL (0.0-0.1); BASO % 0.8 % (0.0-1.0); EOS # 0.3 10*3/uL (0.0-0.4); EOS % 3.6 % (1.0-4.0); HEMATOCRIT 29.3 % (42.0-52.0); HEMOGLOBIN 8.6 g/dl (14.0-18.0); LYMPH # 0.7 10*3/uL (1.3-4.4); LYMPH % 7.7 % (27.0-41.0); MEAN CELL VOLUME 97.7 fl (80.0-94.0); MEAN CORPUSCULAR HGB 28.7 pg (27.0-31.0); MEAN CORPUSCULAR HGB CONC 29.4 g/dl (33.0-37.0); MEAN PLATELET VOLUME 10.4 fl (9.6-12.3); MONO % 11.1 % (3.0-9.0); NEUT # 6.5 10*3/uL (2.3-7.9); NEUT % 74.3 % (47.0-73.0); PLATELET COUNT AUTOMATED 193 10*3/uL (130-400); RED CELL DISTRI WIDTH 19.2 % (0-14.5); WHITE BLOOD COUNT 8.8 10*3/uL (4.8-10.8)
[2018-08-27 07:03] LABS: ALBUMIN 2.3 gm/dl (3.1-4.5); CREATININE 4.73 mg/dL (0.70-1.30); PHOSPHOROUS 4.4 mg/dL (2.5-4.9); POTASSIUM 3.7 mmol/L (3.5-5.1); TOTAL PROTEIN 6.9 gm/dL (6.4-8.2)
[2018-08-27 08:00] VITALS: BP 156/72
[2018-08-27 12:00] VITALS: BP 168/80
[2018-08-27 16:00] VITALS: BP 151/68
[2018-08-27 18:13] LABS: BILIRUBIN NEGATIVE (NEGATIVE); BLOOD 1+ (NEGATIVE); CLARITY CLEAR (CLEAR); COLOR YELLOW (YELLOW); GLUCOSE TRACE (NEGATIVE); KETONE NEGATIVE (NEGATIVE); LEUKO ESTERASE NEGATIVE (NEGATIVE); NITRITE NEGATIVE (NEGATIVE); PH 8.5 (5.0-9.0); UROBILINOGEN 0.2 E.U./dl (0.2-1.0)
[2018-08-27 18:23] LABS: BACTERIA TRACE
[2018-08-27 18:24] LABS: WBC 41-50 wbc/hpf (0-5)
[2018-08-27 20:00] VITALS: BP 137/68
[2018-08-28] VITALS: BP 105/57
[2018-08-28 02:06] VITALS: BP 116/58
[2018-08-28 08:00] VITALS: BP 122/71
[2018-08-28 12:00] VITALS: BP 133/76
[2018-08-28 16:00] VITALS: BP 126/63
[2018-08-28 20:00] VITALS: BP 115/58
[2018-08-29] VITALS (9 sets, daily range): BP systolic 97–144; BP diastolic 53–80
[2018-08-29 12:44] LABS: BF LYMPHOCYTES 22 %; BF NEUTROPHILS 27 %
[2018-08-29 12:45] LABS: BF MACROPHAGES 50 %
[2018-08-29 14:00] LABS: BASO # 0.1 10*3/uL (0.0-0.1); BASO % 0.5 % (0.0-1.0); EOS # 0.5 10*3/uL (0.0-0.4); EOS % 4.5 % (1.0-4.0); HEMATOCRIT 27.2 % (42.0-52.0); HEMOGLOBIN 8.5 g/dl (14.0-18.0); LYMPH # 0.7 10*3/uL (1.3-4.4); MEAN CELL VOLUME 95.8 fl (80.0-94.0); MEAN CORPUSCULAR HGB 29.9 pg (27.0-31.0); MEAN CORPUSCULAR HGB CONC 31.3 g/dl (33.0-37.0); MEAN PLATELET VOLUME 11.1 fl (9.6-12.3); MONO # 0.9 10*3/uL (0.1-1.0); MONO % 8.2 % (3.0-9.0); NEUT # 8.8 10*3/uL (2.3-7.9); NEUT % 78.2 % (47.0-73.0); PLATELET COUNT AUTOMATED 280 10*3/uL (130-400); RED BLOOD COUNT 2.84 10*6/uL (4.50-5.90); RED CELL DISTRI WIDTH 19.2 % (0-14.5); WHITE BLOOD COUNT 11.2 10*3/uL (4.8-10.8)
[2018-08-29 16:33] LABS: ALBUMIN 2.2 gm/dl (3.1-4.5); CREATININE 7.91 mg/dL (0.70-1.30); PHOSPHOROUS 5.5 mg/dL (2.5-4.9); POTASSIUM 3.5 mmol/L (3.5-5.1)
[2018-08-30] VITALS: BP 120/64
[2018-08-30 06:32] LABS: ALBUMIN 2.2 gm/dl (3.1-4.5); CREATININE 4.28 mg/dL (0.70-1.30); PHOSPHOROUS 4.5 mg/dL (2.5-4.9); POTASSIUM 3.7 mmol/L (3.5-5.1)
[2018-08-30 06:46] LABS: HEMATOCRIT 27.1 % (42.0-52.0); MEAN CELL VOLUME 96.8 fl (80.0-94.0); MEAN CORPUSCULAR HGB 28.6 pg (27.0-31.0); MEAN CORPUSCULAR HGB CONC 29.5 g/dl (33.0-37.0); MEAN PLATELET VOLUME 10.3 fl (9.6-12.3); PLATELET COUNT AUTOMATED 241 10*3/uL (130-400); RED CELL DISTRI WIDTH 19.3 % (0-14.5); WHITE BLOOD COUNT 9.9 10*3/uL (4.8-10.8)
[2018-08-30 07:25] LABS: BASOPHILS 1 % (0-1); TOTAL CELLS COUNTED 100 #CELLS
[2018-08-30 07:26] LABS: PLATELET SUFFICIENCY NORMAL (NORMAL); POLYCHROMASIA SLIGHT
[2018-08-30 08:00] VITALS: BP 128/78
[2018-08-30 08:11] LABS: IMMUNOGLOBULIN M, QNT 147 mg/dL (15-143); RHEUMATOID ARTHRITIS FACTOR 16.4 IU/mL (0.0-13.9)
[2018-08-30 08:49] LABS: ABG BASE EXCESS 2.7 mmol/L (-2.0-2.0); ABG O2 SATURATION 92.9 % (95-97); ARTERIAL BLOOD GAS PCO2 35.7 mmHg (35-45); ARTERIAL BLOOD GAS PH 7.475 (7.35-7.45); ARTERIAL BLOOD GAS PO2 71.6 mmHg (80-90)
[2018-08-30 12:00] VITALS: BP 110/66
[2018-08-30 13:08] LABS: ACID FAST SPEC PROCESSING Concentration (.)
[2018-08-30 14:10] LABS: ALDOLASE 002030 5.9 U/L (3.3-10.3); ANGIOTENSIN-CONVERTING ENZYME 78 U/L (14-82)
[2018-08-30 15:06] LABS: MYCOPLASMA PNEUMONIAE IGG 795 U/mL (0-99); MYCOPLASMA PNEUMONIAE IGM <770 U/mL (0-769)
[2018-08-30 16:00] VITALS: BP 138/61
[2018-08-30 16:08] LABS: IGG SUBCLASS 1 348 mg/dL (248-810); IGG SUBCLASS 2 512 mg/dL (130-555); IGG SUBCLASS 3 48 mg/dL (15-102); IGG SUBCLASS 4 40 mg/dL (2-96); IMMUNOGLOBULIN G, QNT 921 mg/dL (700-1600)
[2018-08-30 17:09] LABS: ATYPICAL PANCA <1:20 titer (Neg:<1:20); CYTOPLASMIC (C-ANCA) <1:20 titer (Neg:<1:20)
[2018-08-30 20:00] VITALS: BP 121/61
[2018-08-31] VITALS: BP 125/67
[2018-08-31 04:00] VITALS: BP 142/72
[2018-08-31 09:00] VITALS: BP 142/82
[2018-08-31 16:00] VITALS: BP 111/54
[2018-08-31 20:00] VITALS: BP 108/58
[2018-09-01] VITALS: BP 128/65
[2018-09-01 00:08] LABS: IMMUNOGLOBULIN IgE 002170 6 IU/mL (0-100)
[2018-09-01 03:08] LABS: ADENOVIRUS Negative (Negative); INFLUENZA A Negative (Negative); INFLUENZA B Negative (Negative); METAPNEUMOVIRUS Negative (Negative); PARAINFLUENZA 1 Negative (Negative); PARAINFLUENZA 2 Negative (Negative); PARAINFLUENZA 3 Negative (Negative); RHINOVIRUS Negative (Negative); RSV A Negative (Negative); RSV B Negative (Negative)
[2018-09-01 08:00] VITALS: BP 134/88
[2018-09-01] MEDS ORDERED: DOXYCYCLINE100 M3 PO (12:13)
[2018-10-12 11:04] LABS: ACID FAST CULTURE Negative (.)
== END 2018-09-01 15:07 | disposition other institution (70) | DRG 871 ==
LOC: ED 12:15 → EDHOLD 13:37 → 4E 13:37
PROVIDERS: Emergency Medicine; Internal Medicine Critical Care Medicine; Internal Medicine Nephrology; ADMIT Internal Medicine
PROC: 5A1D70Z Performance of Urinary Filtration, Intermittent, Less than 6 Hours Per Day (ICD-10-PCS; principal; 2018-08-23)
PROC: 5A1D70Z Performance of Urinary Filtration, Intermittent, Less than 6 Hours Per Day (ICD-10-PCS; 2018-08-26)
PROC: 0BC88ZZ Extirpation of Matter from Left Upper Lobe Bronchus, Via Natural or Artificial Opening Endoscopic (ICD-10-PCS; 2018-08-29)
PROC: 5A1D70Z Performance of Urinary Filtration, Intermittent, Less than 6 Hours Per Day (ICD-10-PCS; 2018-08-29)
PROC: 0BC58ZZ Extirpation of Matter from Right Middle Lobe Bronchus, Via Natural or Artificial Opening Endoscopic (ICD-10-PCS; 2018-08-29)
PROC: 0BC78ZZ Extirpation of Matter from Left Main Bronchus, Via Natural or Artificial Opening Endoscopic (ICD-10-PCS; 2018-08-29)
PROC: 0BC98ZZ Extirpation of Matter from Lingula Bronchus, Via Natural or Artificial Opening Endoscopic (ICD-10-PCS; 2018-08-29)
PROC: 0B9D8ZX Drainage of Right Middle Lung Lobe, Via Natural or Artificial Opening Endoscopic, Diagnostic (ICD-10-PCS; 2018-08-29)
PROC: 0BC68ZZ Extirpation of Matter from Right Lower Lobe Bronchus, Via Natural or Artificial Opening Endoscopic (ICD-10-PCS; 2018-08-29)
PROC: 0BC38ZZ Extirpation of Matter from Right Main Bronchus, Via Natural or Artificial Opening Endoscopic (ICD-10-PCS; 2018-08-29)
PROC: 0BC48ZZ Extirpation of Matter from Right Upper Lobe Bronchus, Via Natural or Artificial Opening Endoscopic (ICD-10-PCS; 2018-08-29)
PROC: 0BC18ZZ Extirpation of Matter from Trachea, Via Natural or Artificial Opening Endoscopic (ICD-10-PCS; 2018-08-29)
PROC: 0BCB8ZZ Extirpation of Matter from Left Lower Lobe Bronchus, Via Natural or Artificial Opening Endoscopic (ICD-10-PCS; 2018-08-29)
PROC: 5A1D70Z Performance of Urinary Filtration, Intermittent, Less than 6 Hours Per Day (ICD-10-PCS; 2018-08-30)
DX: A41.9 Sepsis, unspecified organism (principal); J18.9 Pneumonia, unspecified organism; G93.41 Metabolic encephalopathy; N18.6 End stage renal disease; J96.00 Acute respiratory failure, unspecified whether with hypoxia or hypercapnia; J18.1 Lobar pneumonia, unspecified organism; N39.0 Urinary tract infection, site not specified; I12.0 Hypertensive chronic kidney disease with stage 5 chronic kidney disease or end stage renal disease; Z66 Do not resuscitate; Z51.5 Encounter for palliative care; F01.50 Vascular dementia, unspecified severity, without behavioral disturbance, psychotic disturbance, mood disturbance, and anxiety; D63.8 Anemia in other chronic diseases classified elsewhere; F41.1 Generalized anxiety disorder; R62.7 Adult failure to thrive; B96.4 Proteus (mirabilis) (morganii) as the cause of diseases classified elsewhere; E03.9 Hypothyroidism, unspecified; N40.0 Benign prostatic hyperplasia without lower urinary tract symptoms; R31.9 Hematuria, unspecified; Z99.2 Dependence on renal dialysis; Z88.8 Allergy status to other drugs, medicaments and biological substances; Z79.82 Long term (current) use of aspirin; Z79.899 Other long term (current) drug therapy; Z83.3 Family history of diabetes mellitus; Z80.9 Family history of malignant neoplasm, unspecified; Z86.73 Personal history of transient ischemic attack (TIA), and cerebral infarction without residual deficits